=== PATIENT | male | born 1950 | race Caucasian/White ===

== ENCOUNTER 2017-12-02 11:35 | Inpatient (IN) | payer OTHER, BC ==
[2017-12-02 14:32] LABS: ADD MAN DIFF? NO
[2017-12-02 14:43] LABS: BASOPHIL # 0.1 10^3/ul (0.0-0.1); BASOPHILS % 1.1 % (0.0-2.0); EOSINOPHILS # 0.4 10^3/ul (0.0-0.5); HEMATOCRIT 45.3 % (42.0-52.0); HEMOGLOBIN 15.1 g/dl (14.0-18.0); LYMPHOCYTES # 2.2 10^3/ul (0.8-2.9); LYMPHOCYTES % 17.9 % (15.0-51.0); MEAN CORPUSCULAR HEMOGLOBIN 29.5 pg (29.0-33.0); MEAN CORPUSCULAR HGB CONC 33.3 g/dl (32.0-37.0); MEAN CORPUSCULAR VOLUME 88.5 fl (82.0-101.0); MEAN PLATELET VOLUME 9.6 fl (7.4-10.4); MONOCYTE # 0.9 10^3/ul (0.3-0.9); MONOCYTES % 7.5 % (0.0-11.0); NEUTROPHIL # 8.4 10^3/ul (1.6-7.5); PLATELET COUNT 285 10^3/UL (140-415); RED BLOOD COUNT 5.12 10^6/ul (4.70-6.10); RED CELL DISTRIBUTION WIDTH 13.2 % (11.5-14.5)
[2017-12-02 14:43] LABS: WHITE BLOOD COUNT 12.1 10^3/ul (4.8-10.8)
[2017-12-02 14:53] LABS: INR 0.99; PROTIME 13.2 Sec (11.9-14.9)
[2017-12-02 14:58] LABS: ALANINE AMINOTRANSFERASE 32 IU/L (13-69); ALBUMIN 4.1 g/dl (3.3-4.9); ALBUMIN/GLOBULIN RATIO 0.97; ALKALINE PHOSPHATASE 117 IU/L (42-121); ANION GAP 12 (8-16); ASPARTATE AMINO TRANSFERASE 27 IU/L (15-46); BILIRUBIN,INDIRECT 0.7 mg/dl (0-1.1); BILIRUBIN,TOTAL 0.7 mg/dl (0.2-1.3); BLOOD UREA NITROGEN 14 mg/dl (7-20); CALCIUM 9.3 mg/dl (8.4-10.2); CARBON DIOXIDE 28 mmol/L (21-31); CHLORIDE 104 mmol/L (97-110); CREATININE 0.73 mg/dl (0.61-1.24); GLUCOSE 99 mg/dl (70-220); POTASSIUM 4.3 mmol/L (3.5-5.1); SODIUM 140 mmol/L (135-144); TOTAL PROTEIN 8.3 g/dl (6.1-8.1)
[2017-12-02 15:10] LABS: B-TYPE NATRIURETIC PEPTIDE 2850 PG/ML (0-125)
[2017-12-02 15:14] LABS: TROPONIN-I < 0.012 ng/ml (0.00-0.12)
[2017-12-02] MEDS: FUROSEMIDE 20 MG INJ IV (20:15)
[2017-12-02] MEDS: DILTIAZEM-D5W 125MG/125ML DRIP 125 ML IV (20:16)
[2017-12-02] MEDS: DILTIAZEM 25 MG INJ IV (20:16)
[2017-12-02] MEDS ORDERED: ONDANSETRON 4 MG INJ IV (20:30)
[2017-12-02] MEDS ORDERED: ACETAMINOPHEN 325 MG TAB PO (20:30)
[2017-12-03] MEDS ORDERED: ACETAMINOPHEN 325 MG TAB PO (05:30)
[2017-12-03] MEDS ORDERED: NACL 0.9% 3 ML SYG IV (05:30)
[2017-12-03 06:38] LABS: ADD MAN DIFF? NO
[2017-12-03 06:48] LABS: BASOPHIL # 0.1 10^3/ul (0.0-0.1); EOSINOPHILS # 0.5 10^3/ul (0.0-0.5); EOSINOPHILS % 3.9 % (0.0-7.0); HEMATOCRIT 43.3 % (42.0-52.0); HEMOGLOBIN 14.7 g/dl (14.0-18.0); LYMPHOCYTES # 1.8 10^3/ul (0.8-2.9); LYMPHOCYTES % 14.3 % (15.0-51.0); MEAN CORPUSCULAR HEMOGLOBIN 29.5 pg (29.0-33.0); MEAN CORPUSCULAR HGB CONC 33.9 g/dl (32.0-37.0); MEAN CORPUSCULAR VOLUME 86.8 fl (82.0-101.0); MEAN PLATELET VOLUME 9.8 fl (7.4-10.4); MONOCYTE # 1.1 10^3/ul (0.3-0.9); MONOCYTES % 8.5 % (0.0-11.0); NEUTROPHIL # 8.9 10^3/ul (1.6-7.5); NEUTROPHILS % 70.9 % (39.0-77.0); PLATELET COUNT 291 10^3/UL (140-415); RED BLOOD COUNT 4.99 10^6/ul (4.70-6.10)
[2017-12-03 06:48] LABS: WHITE BLOOD COUNT 12.5 10^3/ul (4.8-10.8)
[2017-12-03 07:09] LABS: ALANINE AMINOTRANSFERASE 30 IU/L (13-69); ALBUMIN 3.6 g/dl (3.3-4.9); ALBUMIN/GLOBULIN RATIO 0.92; ALKALINE PHOSPHATASE 105 IU/L (42-121); ANION GAP 14 (8-16); ASPARTATE AMINO TRANSFERASE 25 IU/L (15-46); BILIRUBIN,INDIRECT 0.9 mg/dl (0-1.1); BILIRUBIN,TOTAL 0.9 mg/dl (0.2-1.3); BLOOD UREA NITROGEN 12 mg/dl (7-20); CARBON DIOXIDE 26 mmol/L (21-31); CHLORIDE 101 mmol/L (97-110); CHOL/HDL RATIO 3.9 RATIO; CHOLESTEROL 114 mg/dl (100-200); CREATININE 0.68 mg/dl (0.61-1.24); GLUCOSE 91 mg/dl (70-220); HDL CHOLESTEROL 29 mg/dl (30-78); LDL CHOLESTEROL,CALCULATED 70 mg/dl; MAGNESIUM 1.9 mg/dl (1.7-2.5); POTASSIUM 3.8 mmol/L (3.5-5.1); SODIUM 137 mmol/L (135-144); TOTAL PROTEIN 7.5 g/dl (6.1-8.1); TRIGLYCERIDES 74 mg/dl (0-149)
[2017-12-03 08:45] LABS: HEMOGLOBIN A1C 5.3 % (0-5.9)
[2017-12-03] MEDS: METOPROLOL 25 MG TAB PO (09:00)
[2017-12-03] MEDS: ENOXAPARIN 40 MG/0.4 ML SYG SC (09:00)
[2017-12-03] MEDS: FUROSEMIDE 20 MG INJ IV (10:14)
[2017-12-03] MEDS: DILTIAZEM-D5W 125MG/125ML DRIP 125 ML IV (11:53)
[2017-12-03] MEDS: morphine 2 MG INJ IV (20:54)
[2017-12-03] MEDS: METOPROLOL 50 MG TAB GTB (20:55)
[2017-12-03] MEDS: ONDANSETRON 4 MG INJ IV (22:34)
[2017-12-04 05:41] LABS: ADD MAN DIFF? NO
[2017-12-04 06:04] LABS: BASOPHIL # 0.1 10^3/ul (0.0-0.1); EOSINOPHILS # 0.5 10^3/ul (0.0-0.5); EOSINOPHILS % 4.5 % (0.0-7.0); HEMATOCRIT 43.3 % (42.0-52.0); HEMOGLOBIN 14.6 g/dl (14.0-18.0); LYMPHOCYTES % 16.5 % (15.0-51.0); MEAN CORPUSCULAR HEMOGLOBIN 29.4 pg (29.0-33.0); MEAN CORPUSCULAR HGB CONC 33.7 g/dl (32.0-37.0); MEAN CORPUSCULAR VOLUME 87.3 fl (82.0-101.0); MEAN PLATELET VOLUME 9.8 fl (7.4-10.4); MONOCYTE # 1.1 10^3/ul (0.3-0.9); MONOCYTES % 8.9 % (0.0-11.0); NEUTROPHILS % 67.7 % (39.0-77.0); PLATELET COUNT 272 10^3/UL (140-415); RED BLOOD COUNT 4.96 10^6/ul (4.70-6.10); RED CELL DISTRIBUTION WIDTH 13.4 % (11.5-14.5)
[2017-12-04 06:04] LABS: WHITE BLOOD COUNT 11.8 10^3/ul (4.8-10.8)
[2017-12-04 06:43] LABS: ANION GAP 12 (8-16); BLOOD UREA NITROGEN 18 mg/dl (7-20); CALCIUM 8.8 mg/dl (8.4-10.2); CARBON DIOXIDE 27 mmol/L (21-31); CHLORIDE 103 mmol/L (97-110); CREATININE 0.82 mg/dl (0.61-1.24); GLUCOSE 105 mg/dl (70-220); MAGNESIUM 2.2 mg/dl (1.7-2.5); POTASSIUM 3.9 mmol/L (3.5-5.1); SODIUM 138 mmol/L (135-144)
[2017-12-04] MEDS: DILTIAZEM-D5W 125MG/125ML DRIP 125 ML IV (09:32)
[2017-12-04] MEDS: ENOXAPARIN 40 MG/0.4 ML SYG SC (09:34)
[2017-12-04] MEDS: METOPROLOL 50 MG TAB GTB ×2 (10:07→20:57)
[2017-12-04] MEDS ORDERED: morphine LIQ (10 MG/5 ML) CUP PO (17:30)
[2017-12-04] MEDS ORDERED: DILTIAZEM 25 MG INJ IV (18:00)
[2017-12-04] MEDS: DIGOXIN 500 MCG INJ IV (18:23)
[2017-12-04] MEDS: DILTIAZEM (CD) 120 MG CAP PO (20:58)
[2017-12-04] MEDS: ENOXAPARIN 60 MG/0.6 ML SYG SC (21:05)
[2017-12-05] MEDS: METOPROLOL 50 MG TAB GTB ×2 (09:00→21:09)
[2017-12-05] MEDS: DILTIAZEM (CD) 120 MG CAP PO ×2 (11:40→21:09)
[2017-12-05] MEDS: ENOXAPARIN 60 MG/0.6 ML SYG SC ×2 (11:42→21:17)
[2017-12-05] MEDS: FUROSEMIDE 20 MG INJ IV (13:07)
[2017-12-05] MEDS: FUROSEMIDE 40 MG TAB PO (21:08)
[2017-12-06] MEDS: FUROSEMIDE 40 MG TAB PO (09:48)
[2017-12-06] MEDS: DILTIAZEM (CD) 120 MG CAP PO (09:48)
[2017-12-06] MEDS: METOPROLOL 50 MG TAB GTB (09:49)
[2017-12-06] MEDS: ENOXAPARIN 60 MG/0.6 ML SYG SC (09:51)
[2017-12-06] MEDS: REGADENOSON 0.4 MG/5 ML SYG (11:10)
[2017-12-07] MEDS ORDERED: INFLUENZA VIRUS VACCINE 0.5 ML (DISPENSING) IM* (09:00)
== END 2017-12-06 15:22 | disposition home or self-care (01) | DRG 293 ==
LOC: MS3 20:28 → E/R 11:35 → MS3 12-03 13:12
DX: I11.0 Hypertensive heart disease with heart failure (principal); I42.9 Cardiomyopathy, unspecified; I48.91 Unspecified atrial fibrillation; E78.5 Hyperlipidemia, unspecified; B35.1 Tinea unguium; Z91.14 Patient's other noncompliance with medication regimen; I50.23 Acute on chronic systolic (congestive) heart failure
CPT/HCPCS: 36415; 71045; 78452; 80048; 80053; 80061; 83036; 83735; 83880; 84100; 84443; 84484; 85025; 85610; 93005; 93017; 93306; 93970; 96372; 96374; 96375; 96376; 97163; 99291-25; J1940